=== PATIENT | male | born 1985 | race African-American/Black ===

== ENCOUNTER 2022-09-11 15:09 | Emergency (ER) | payer OTHER, SELFPAY ==
--- NOTE | ~2022-09-11 | XR_ITS ---
EXAMINATION: XR chest 2V Exam Date/Time: 09/11/2022 16:00 CDT HISTORY: RT SIDED CP FOR 1 MONTH, COMES AND GOES Comparison: 11/19/2004, CTPA 11/17/2019. RESULT: Lines, tubes, and devices: None. Lungs and pleura: Clear. Cardiomediastinal silhouette: Stable. Other: No acute osseous or upper abdominal finding. IMPRESSION: No acute cardiopulmonary process. Reviewed, dictated and finalized at location K.
--- NOTE | 2022-09-11 15:22 | ECG_ITS ---
Measurements Intervals [place] Rate: 70 P: 29 CO: 190 QRS: 39 QRSD: 92 T: 15 QT: 380 QTc: 410 Interpretive Statements SINUS RHYTHM DELAYED PRECORDIAL R/S TRANSITION BORDERLINE ECG COMPARED TO ECG 03/19/2020 19:22:38 NO SIGNIFICANT CHANGES Electronically Signed On 09-11-2022 16:55:32 CDT by Milo Diallo D.O.
[2022-09-11 15:38] LABS: Basophils Percent Auto 0.6 % (0.2-1.2); Eosinophils Absolute Auto 0.1 K/mm3 (0-0.3); Eosinophils Percent Auto 1.1 % (0-4.4); Hematocrit 42.1 % (42.0-52.0); Hemoglobin 14.1 g/dL (14.0-18.0); Immature Granulocyte Absolute 0.01 K/mm3 (0.00-0.031); Immature Granulocyte Percent A 0.2 % (0-0.5); Lymphocytes Absolute Auto 2.61 K/mm3 (0.9-3.2); Mean Corpuscular HGB Conc 33.5 g/dl (32-36); Mean Corpuscular Hemoglobin 29.7 pg (26-34); Mean Corpuscular Volume 88.6 fl (80-100); Monocytes Absolute Auto 0.5 K/mm3 (0.1-0.6); Monocytes Percent Auto 7.4 % (2.6-8.5); Neutrophils Absolute Auto 3.2 K/mm3 (1.3-6.7); Neutrophils Percent Auto 49.7 % (45.5-73.1); Platelet Count Result 236 k/mm3 (150-375); Red Blood Count 4.75 M/mm3 (4.6-6.20); Red Cell Distribution Width 12.9 % (11.5-14.5); White Blood Count 6.4 K/mm3 (4.5-10.0)
[2022-09-11 15:41] VITALS: BP 116/78; PULSE 77; RESP 18; TEMP 36.8; O2SAT 100
[2022-09-11 15:48] LABS: Alanine Aminotransferase 21 U/L (6-50); Albumin Level 4.8 g/dL (3.5-5.1); Alkaline Phosphatase 53 U/L (38-126); Anion Gap 6 mmol/L (8-16); Aspartate Amino Transferase 29 U/L (17-59); Bilirubin,Total 0.7 mg/dL (0.2-1.3); Blood Urea Nitrogen 12 mg/dL (9-20); Calcium 8.8 mg/dL (8.4-10.2); Carbon Dioxide 27 mmol/L (22-30); Chloride 108 mmol/L (98-107); Estimated CRCL calculation 133 ml/min; Estimated Glomerular Filt Rate > 60; Glucose 85 mg/dL (65-110); Lipase 116 U/L (23-300); Potassium 3.7 mmol/L (3.4-5.0); Sodium 141 mmol/L (137-145)
[2022-09-11 15:52] LABS: INR 1.1
[2022-09-11 15:53] LABS: Partial Thromboplastin Time 33.7 SECONDS (22.3-36.8)
[2022-09-11 15:59] LABS: Troponin I < 0.012 ng/mL (0.000-0.034)
[2022-09-11 17:04] LABS: D Dimer 0.27 ug/mL (<0.48)
--- NOTE | 2022-09-11 17:12 | ED.CHESTPAIN ---
HPI - Chest Pain General Chief Complaint: Chest Pain Stated Complaint: mekhi sent for PE work up Time Seen by Provider: 09/11/22 16:44 History of Present Illness HPI narrative: Patient has a history of DVT/PE after ACL surgery in the past which had resolved with blood thinners, he was concerned because over the last 2 weeks, he has been having some discomfort in his left chest. No shortness of breath. Related Data Allergies Allergy/AdvReac Type Severity Reaction Status Date / Time No Known Allergies Allergy Unverified 03/19/20 18:47 Review of Systems Review of Systems: CONST: No fever. HEENT: No sore throat C/V: chest pain RESP: No cough or shortness of breath GI: No nausea/vomiting : No dysuria. M/S: No leg swelling SKIN: No rash. NEURO: [No headache or focal numbness or weakness] PSYCH: [No depression] [facility] Past Medical History Medical History (Updated 09/11/22 @ 18:03 by Yuridia Campbell MD) Pulmonary embolism and infarction Surgical History Surgical History S/P ACL surgery Family History Family History Other Unknown family medical history Social History Social History Spiritual care concerns: No Exam Narrative: EXAMINATION OF ORGAN SYSTEMS/BODY AREAS: Constitutional: Vital signs per nursing GENERAL:[No acute distress, non-toxic appearing.] HEAD: Normal with no signs of head trauma. EYES: EOMI, conjunctiva normal ENT: Hearing grossly intact LUNGS: Nonlabored breathing. HEART: [Regular rate and rhythm] ABD: [Soft], [nontender to palpation] EXT: Normal range of motion, no lower extremity edema or tenderness SKIN: [No rashes or lesions.] NEURO: [Alert and oriented x 3. No gross focal sensory or strength deficits.] PSYCH: Normal affect Course Vital Signs Vital signs: Vital Signs Temperature 98.2 F 09/11/22 15:41 Pulse Rate 77 09/11/22 15:41 Respiratory Rate 18 09/11/22 15:41 Blood Pressure 116/78 09/11/22 15:41 Pulse Oximetry 100 09/11/22 15:41 Oxygen Delivery Room Air 09/11/22 15:41 Temperature 98.2 F 09/11/22 15:41 Pulse Rate 62 09/11/22 17:16 Respiratory Rate 18 09/11/22 17:16 Blood Pressure 130/92 H 09/11/22 17:16 Pulse Oximetry 100 09/11/22 17:16 Oxygen Delivery Room Air 09/11/22 15:41 MDM - Chest Pain MDM Narrative Medical decision making narrative: ED COURSE AND MEDICAL DECISION MAKIN-year-old male presenting with chest pain. EKG done in triage negative for acute ischemic changes. Cardiac workup is initiated. EKG: Performed in triage and interpreted by me. Normal sinus rhythm. Rate 70. Normal axis. AK normal. QRS duration normal. QTc normal. No pathologic Q waves. No ST segment elevation or depression to suggest acute ischemia. No RV strain pattern. HEART score is 0 with no acute ischemic changes on EKG and negative troponin making ACS unlikely. Wells low risk with negative PERC making PE unlikely, D-dimer is also obtained given his prior PE that was provoked, and this is negative.. Presentation not consistent with dissection or aneurysm without radiation of pain or pulse deficits. CXR negative for mediastinal widening. No abdominal pain or signs of sepsis that would be concerning for esophageal perforation or mediastinitis. No cardiomegaly or JVD to suggest pericardial effusion/tamponade. On repeat evaluation just prior to discharge, the patient is no acute distress. I had a long discussion with the patient and with shared decision making, [he] is comfortable with outpatient management. [He] was given clear return instructions by myself in person as well as on discharge paperwork. Procedures: Pulse oximetry interpretation - not hypoxic. EKG interpretation. Review of medical records. Lab Data 09/11/22 15:32 09/11/22 15:32 Labs: Lab Results
[2022-09-11 17:16] VITALS: BP 130/92; PULSE 62; RESP 18; O2SAT 100
[2022-09-11] MEDS: ASPIRIN 81 MG CHEWABLE TABLET 324 MG PO (17:38)
== END 2022-09-11 18:19 | disposition home or self-care (01) ==
PROVIDERS: Emergency Provider Emergency Medicine; PCP Emergency Medicine
DX: R07.9 Chest pain, unspecified (principal); Z86.711 Personal history of pulmonary embolism
CPT/HCPCS: 36415; 71046; 80053; 83690; 84484; 85025; 85380; 85610; 85730; 93005; 99284; A9270

== ENCOUNTER 2022-09-13 08:31 | Outpatient (CLI) | payer OTHER, SELFPAY ==
[2022-09-13 08:51] LABS: Basophils Percent Auto 0.6 % (0.2-1.2); Eosinophils Absolute Auto 0.1 K/mm3 (0-0.3); Eosinophils Percent Auto 1.7 % (0-4.4); Hematocrit 42.2 % (42.0-52.0); Hemoglobin 14.4 g/dL (14.0-18.0); Immature Granulocyte Absolute 0.02 K/mm3 (0.00-0.031); Immature Granulocyte Percent A 0.3 % (0-0.5); Lymphocytes Absolute Auto 2.67 K/mm3 (0.9-3.2); Lymphocytes Percent Auto 40.1 % (18.3-44.2); Mean Corpuscular HGB Conc 34.1 g/dl (32-36); Mean Corpuscular Hemoglobin 29.9 pg (26-34); Mean Corpuscular Volume 87.7 fl (80-100); Mean Platelet Volume 9.9 fl (7.4-10.4); Monocytes Absolute Auto 0.5 K/mm3 (0.1-0.6); Monocytes Percent Auto 7.5 % (2.6-8.5); Neutrophils Absolute Auto 3.3 K/mm3 (1.3-6.7); Neutrophils Percent Auto 49.8 % (45.5-73.1); Platelet Count Result 239 k/mm3 (150-375); Red Blood Count 4.81 M/mm3 (4.6-6.20); Red Cell Distribution Width 12.6 % (11.5-14.5); White Blood Count 6.7 K/mm3 (4.5-10.0)
[2022-09-13 13:43] LABS: Alanine Aminotransferase 21 U/L (6-50); Albumin Level 4.4 g/dL (3.5-5.1); Alkaline Phosphatase 48 U/L (38-126); Anion Gap 6 mmol/L (8-16); Aspartate Amino Transferase 27 U/L (17-59); Bilirubin,Total 0.5 mg/dL (0.2-1.3); Blood Urea Nitrogen 9 mg/dL (9-20); Calcium 8.6 mg/dL (8.4-10.2); Carbon Dioxide 27 mmol/L (22-30); Chloride 107 mmol/L (98-107); Estimated Glomerular Filt Rate > 60; Glucose 92 mg/dL (65-110); Potassium 4.1 mmol/L (3.4-5.0); Sodium 140 mmol/L (137-145)
[2022-09-17 20:41] LABS: Homocysteine 15.7 umol/L (<11.4)
== END 2022-09-13 08:32 | disposition home or self-care (01) ==
LOC: ANHLAB 08:32
PROVIDERS: PCP Emergency Medicine; Visit Provider Internal Medicine Hematology & Oncology
DX: N18.9 Chronic kidney disease, unspecified (principal)
CPT/HCPCS: 36415; 80053; 83090; 85025

== ENCOUNTER 2025-05-15 10:04 | Emergency (ER) | payer SELFPAY ==
--- NOTE | ~2025-05-15 | US_ITS ---
EXAM/PROCEDURE: US scrotum doppler HISTORY: R testicular pain COMPARISON: None available. TECHNIQUE: Scrotal ultrasound performed FINDINGS: Right testicle: 5.0 x 2.6 x 3.5 cm Left testicle: 4.5 x 2.6 x 3.5 cm Both testicles appear normal in echotexture and vascular flow. Small left-sided hydrocele present. No right-sided hydrocele. No varicocele seen. Epididymal regions unremarkable. IMPRESSION: Other than small left-sided hydrocele, normal-appearing scrotal ultrasound. The testicles are normal in echotexture and vascular flow. Reviewed, dictated and finalized at location A. OR TRIAL ATTORNEY
--- OUTSIDE RECORDS SUMMARY | 2025-05-15 10:06 | XMS_ITS | Clinical Summary ---
Author Organization [facility]selmo euceda [facility] Address [address] [place] [address] Care Team Providers Care Solar Sales Associate Name Role Phone Samuel Deras MD Primary Care Provider [phone] Allergies No known active allergies Medications No known medications Active Problems No known active problems Family History Medical History Relation Name Comments Healthy Brother Healthy Father Healthy Mother Healthy Son Relation Name Status Comments Brother Alive 3 BROTHER TOTAL Father Alive Mother Alive Son Alive Social History Tobacco Use Types Packs/Day Years Used Date Smoking Tobacco: Former Cigars Q uit: 02/23/2020 Smokeless Tobacco: Never Alcohol Use Standard Drinks/Week Comments Not Currently 0 (1 standard drink = 0.6 oz pur e alcohol) Sex and Gender Information Value Date Recorded Sex Assigned at Not on file Legal Sex Male 12:11 PM CDT Gender Identity Not on file Sexual Orientation Not on file Last Filed Vital Signs Vital Sign Reading Time Taken Comments Blood Pressure 113/68 09/21/2022 2:44 PM CDT Pulse 64 09/21/2022 2:44 PM CDT Temperature 36.4 C (97.6 F) 09/21/2022 2:44 PM CDT Respiratory Rate 10 09/21/2022 2:44 PM CDT Oxygen Saturation 100% 09/21/2022 2:44 PM CDT Inhaled Oxygen Concentration - - Weight 107 kg (236 lb) 09/21/2022 2:44 PM CDT Height 171.5 cm (5' 7.5) 07/07/2020 1:45 PM VISUAL DISPLAY MANAGER Body Mass Index 36.42 07/07/2020 1:45 PM VISUAL DISPLAY MANAGER Plan of Treatment Health Maintenance Due Date Last Done Comments DTAP/TDAP/TD VACCINES (1 - Tdap) 2006 HEPATITIS B VACCINES (1 of 3 - 19+ 3-dose series) 03/25 HPV VACCINES (1 - 3-dose SCDM series) 2014 INFLUENZA VACCINE (#1) 2025 Insurance Member Subscriber Plan / Payer (Ef fective 2022-Present) Name:Iggy Hinojosa Relation to Subscriber:Self Name:Iggy Hinojosa Payer ID:[id number] (NAIC) Type:PPO Address: [facility] [id number] [place] [id number] Care Teams Solar Sales Associate Relationship Specialty Start Date End Date Samuel Deras MD [address] [place] [phone] PCP - General Emergency Medicine 03/23/20
[2025-05-15 10:23] VITALS: BP 123/83; PULSE 71; RESP 20; TEMP 36.9; O2SAT 99
[2025-05-15 10:38] LABS: Add Urine Microscopic? YES; Appearance Urine Clear (Clear); Glucose Urine UA Negative (Negative); Leukocyte Esterase Ur 1+ LEU/UL (Negative); Nitrate Urine Negative (Negative); Non Pathogenic Casts 0-2; Specific Grav Ur 1.025 (1.001-1.035)
--- OUTSIDE RECORDS SUMMARY | 2025-05-15 11:39 | XMS_ITS | Clinical Summary ---
Author Organization [facility]selmo euceda [facility] Address [address] [facility] [place] [address] Care Team Providers Care Car Repairer Helper Name Role Phone Samuel Deras MD Primary Care Provider [phone] Allergies No known active allergies Medications No [...] 171.5 cm (5' 7.5) 07/07/2020 1:45 PM WET END HELPER Body Mass Index 36.42 07/07/2020 1:45 PM WET END HELPER Plan of Treatment Health Maintenance Due Date Last Done Comments DTAP/TDAP/TD VACCINES (1 - Tdap) 2006 HEPATITIS B VACCINES (1 of 3 - 19+ 3-dose series) 03/25 HPV VACCINES (1 - 3-dose SCDM series) 2014 INFLUENZA VACCINE (#1) 2025 Insurance Member Subscriber Plan / Payer (Ef fective 2022-Present) Name:Iggy Hinojosa Relation to Subscriber:Self Name:Iggy Hinojosa Payer ID:[id number] (NAIC) Type:PPO Address: [facility] [id number] [place] [id number] Care Teams Car Repairer Helper Relationship Specialty Start Date End Date Samuel Deras MD [address] [place] [phone] PCP - General Emergency Medicine 03/23/20
--- NOTE | 2025-05-15 11:50 | ED.MALEGU ---
HPI - Male Genitourinary General Chief complaint: Urogenital-Male Stated complaint: I have blood in my semen Time Seen by Provider: 05/15/25 11:29 History of Present Illness HPI Narrative: Patient is a 40-year-old male who presents to the ER with urinary symptoms for the past 2 days. He reports 2 days ago he started experiencing right testicular pain. The pain subsided some yesterday but he endorses blood in his semen. Patient denies any burning with urination, fevers, back pain, or abdominal pain. He endorses a history of herpes but denies any other medical history. Patient reports the testicular pain is not as intense but it is still present. Related Data Allergies Allergy/AdvReac Type Severity Reaction Status Date / Time No Known Allergies Allergy Verified 05/15/25 10:23 Review of Systems Review of Systems: All systems reviewed & are unremarkable except as noted in HPI and below PMFSH Past Medical History Medical History Pulmonary embolism and infarction Surgical History Surgical History S/P ACL surgery Social History Social History Smoking status: Former smoker Tobacco type: cigars Alcohol intake: current Drinks per week: 2 Substance use: never Do You Feel Safe in your Home?: Yes Lack of Transportation: No Lack of Food: Never True Current Housing: I Have Housing Concerned About Future Housing: No Difficulty Paying Gas/Electric Bills: No Difficulty Paying for Meds: No Currently Unemployed: No Education: High School Diploma/GED Difficulty w/ Childcare or Family Care: No Occupation/Education: occupation Additional occupation/education comments: [employer] Spiritual care concerns: No Exam Narrative: GENERAL: Well appearing, well-nourished, non-toxic, in no acute distress. HEAD: Normocephalic, atraumatic. NECK: Supple. No adenopathy, no masses. RESPIRATORY: Airway patent, respirations nonlabored. Clear to auscultation bilaterally, no rales, rhonchi, wheezing. CARDIOVASCULAR: Regular rate and rhythm without murmurs, rubs, or gallops. Peripheral pulses 2+ and equal bilaterally. ABDOMINAL: Soft, nontender, nondistended, no hepatosplenomegaly. Normoactive BS. MUSCULOSKELETAL: Moves all extremities. Strength/ROM intact without gross deformities. SKIN: Warm, dry, normal color. No rashes. NEURO: A&O X3. Speech clear. Cranial nerves II-XII intact. No ataxic movements. PSYCHIATRIC: Appropriate mood and affect. Normal interaction. Course Vital Signs Vital signs: Vital Signs Temperature 36.9 C 05/15/25 10:23 Pulse Rate 71 05/15/25 10:23 Respiratory Rate 20 05/15/25 10:23 Blood Pressure 123/83 05/15/25 10:23 Pulse Oximetry 99 05/15/25 10:23 Oxygen Delivery Room Air 05/15/25 10:23 Temperature 36.9 C 05/15/25 10:23 Pulse Rate 71 05/15/25 10:23 Respiratory Rate 20 05/15/25 10:23 Blood Pressure 123/83 05/15/25 10:23 Pulse Oximetry 99 05/15/25 10:23 Oxygen Delivery Room Air 05/15/25 10:23 MDM - Male Genitourinary MDM Narrative Medical decision making narrative: Patient is a 40-year-old male who presents to the ER with urinary symptoms for the past 2 days. He reports 2 days ago he started experiencing right testicular pain. The pain subsided some yesterday but he endorses blood in his semen. Patient denies any burning with urination, fevers, back pain, or abdominal pain. He endorses a history of herpes but denies any other medical history. Patient reports the testicular pain is not as intense but it is still present. Labs Ordered: CBC, CMP, GC chlamydia, Trichomonas, UA Imaging Ordered: Scrotal ultrasound Medications Ordered: Bactrim p.o. Results: Patient's ultrasound indicates Other than small left-sided hydrocele, normal-appearing scrotal ultrasound. The testicles are normal in echotexture and vascular flow. Patient's urinalysis indicates he has a UTI. Diagnosis: Urinary tract infection Patient Education/Shared MDM: Results of lab work and imaging shared with patient. He will be given his first dose of oral antibiotics here in the ER. Patient strongly advised to maintain hydration status upon discharge and follow-up with his PCP to ensure he is healing. He will be discharged home with a prescription for Bactrim. Strict return precautions provided. Patient verbalized understanding and is in agreement with plan. Vital signs stable at time of discharge. All questions answered. Differential Diagnosis Differential diagnosis: Likely urinary tract infection, epididymitis, prostatitis and acute retention of urine Lab Data Attestation: I reviewed the patient's lab results. Labs: Lab Results 05/15/25 Range/Units 10:28 Urine Color Yellow (Yellow) Urine Appearance Clear (Clear) Urine pH 5.5 (5.0-9.0) Ur Specific [place] 1.025 (1.001-1.035) Urine Protein Negative (Negative) mg/dL Urine Glucose (UA) Negative (Negative) mg/dL Urine Ketones Trace H (Negative) mg/dL Ur Blood (Man) Negative (Negative) Urine Nitrate Negative (Negative) Urine Bilirubin Negative (Negative) Urine Urobilinogen 1.0 (<2.0) mg/dL Leukocyte Esterase Rfl 1+ H (Negative) RAMOS/UL Urine RBC 0-2 (0-2) /hpf Urine WBC 11-20 H (0-3) /hpf Ur Squamous Epith Cells None seen (Few) /hpf Urine Bacteria None seen /hpf Urine Casts 0-2 C. trachomatis (PCR) Not detected (NOT DETECTE) N. gonorrhoeae (PCR) Not detected (NOT DETECTE) T. vaginalis (PCR) Not detected (NOT DETECTE) Imaging Data Attestation: I personally reviewed and interpreted this imaging study as follows: Radiologist's impression: Impressions Scrotum Ultrasound 05/15/25 12:44 IMPRESSION: Other than small left-sided hydrocele, normal-appearing scrotal ultrasound. The testicles are normal in echotexture and vascular flow. Discharge Plan Discharge Clinical Impression: Urinary tract infection Patient Disposition: Home Condition: Stable Instructions: Antibiotic Form, Urinary Tract Infection in Men (ED) Additional Instructions: Please return to the ER with any worsening symptoms. Follow-up with your primary care provider for re-evaluation and to ensure your healing. Complete your full dose of antibiotics. You may take Tylenol and/or ibuprofen for pain control. Please remember to drink lots of water. Patient Language: Ethiopian Prescriptions: New sulfamethoxazole-trimethoprim [Bactrim DS] 800-160 mg tablet 1 tablet PO Q12H 7 Days Qty: 14 0RF Follow-up/Referrals: Annabella Degroot DO [Physician, Family Practice] Referral Note: primary care provider PHYSICIAN,FACILITY MAINTENANCE HELPER [Primary Care Provider, Internal Medicine] Stand Alone Forms: Work/School Release IP Time of Disposition: 15:25
[2025-05-15 14:29] LABS: Trichomonas Vag PCR NOT DETECTED (NOT DETECTE)
[2025-05-15] MEDS: SULFAMETHOXAZOLE/TRIMETHOPRIM 800/160 MG DS TABLET 1 TAB PO (15:18)
== END 2025-05-15 15:41 | disposition home or self-care (01) ==
PROVIDERS: Emergency Medicine; Emergency Provider Registered Nurse
DX: N39.0 Urinary tract infection, site not specified (principal); Z87.891 Personal history of nicotine dependence; Z11.3 Encounter for screening for infections with a predominantly sexual mode of transmission
CPT/HCPCS: 76870; 81001; 87086; 87491; 87591; 87661; 93976; 99284; A9270